=== PATIENT | female | born 1990 | race Native Hawaiian/Other Pacific Islander ===

== ENCOUNTER 2019-03-25 22:35 | Emergency (ER) | payer OTHER ==
[~2019-03-25] VITALS: Ht 160 cm; Wt 63.5 kg
[2019-03-25] MEDS ORDERED: PANTOPRAZOLE 40MG TA PO (22:51)
[2019-03-25] MEDS ORDERED: PRED10TA27 PO (22:51)
[2019-03-25] MEDS ORDERED: IBU800 MG PO (22:51)
[2019-03-25 23:38] LABS: PLATELET COUNT 236 K/uL (152-353)
[2019-03-25 23:55] LABS: POTASSIUM 4.2 mmol/L (3.6-5.2)
[2019-03-26 03:04] VITALS: BP 104/68; TEMP 97.9
== END 2019-03-26 03:04 | disposition home or self-care (01) ==
LOC: ED 22:35
PROVIDERS: Student in an Organized Health Care Education/Training Program
DX: R10.11 Right upper quadrant pain (principal); R11.2 Nausea with vomiting, unspecified
CPT/HCPCS: 36415; 80053; 81000; 83690; 83735; 85027; 96360; 96375; 96376; 99284; J1885; J2405; Q9963

== ENCOUNTER 2019-04-01 21:36 | Emergency (ER) | payer OTHER ==
[~2019-04-01] VITALS: Ht 160 cm; Wt 64.0 kg
[~2019-04-01 21:36] MED LIST: IBU800 MG PO; PANTOPRAZOLE 40MG TA PO; PRED10TA27 PO
[2019-04-01 23:49] LABS: PLATELET COUNT 236 K/uL (152-353)
[2019-04-01 23:50] LABS: POTASSIUM 4.1 mmol/L (3.6-5.2)
[2019-04-02 01:27] VITALS: BP 106/73; TEMP 98.3
== END 2019-04-02 01:27 | disposition home or self-care (01) ==
LOC: ED 21:36
PROVIDERS: Emergency Medicine
DX: K21.9 Gastro-esophageal reflux disease without esophagitis (principal)
CPT/HCPCS: 80053; 81000; 81025; 82150; 83690; 85027; 86318; 96360; 96375; 99284; J3490

== ENCOUNTER 2019-04-03 14:53 | Emergency (ER) | payer OTHER ==
[~2019-04-03] VITALS: Ht 160 cm; Wt 64.0 kg
[2019-04-03 15:30] LABS: POTASSIUM 3.6 mmol/L (3.6-5.2); SODIUM 141 mmol/L (136-145)
[2019-04-03 15:37] LABS: PLATELET COUNT 225 K/uL (152-353)
[2019-04-03 19:45] VITALS: BP 92/66; TEMP 98.8
== END 2019-04-03 19:45 | disposition home or self-care (01) ==
LOC: ED 14:53
PROVIDERS: Emergency Medicine
DX: R07.89 Other chest pain (principal); R00.0 Tachycardia, unspecified
CPT/HCPCS: 36415; 80053; 82550; 82553; 84484; 85027; 93005; 99284

== ENCOUNTER 2019-06-04 08:06 | Emergency (ER) | payer OTHER ==
[~2019-06-04] VITALS: Ht 160 cm; Wt 65.8 kg
[2019-06-04 08:12] VITALS: BP 123/77; TEMP 100
== END 2019-06-04 09:10 | disposition home or self-care (01) ==
LOC: ED 08:06
DX: J11.1 Influenza due to unidentified influenza virus with other respiratory manifestations (principal)
CPT/HCPCS: 87502; 87651; 99283

== ENCOUNTER 2019-06-07 00:06 | Emergency (ER) | payer OTHER ==
[~2019-06-07] VITALS: Ht 160 cm; Wt 65.8 kg
[2019-06-07 00:55] VITALS: BP 111/81; TEMP 98.9
== END 2019-06-07 00:55 | disposition home or self-care (01) ==
LOC: ED 00:06
DX: J11.1 Influenza due to unidentified influenza virus with other respiratory manifestations (principal); J98.01 Acute bronchospasm
CPT/HCPCS: 94664; 99283

== ENCOUNTER 2019-08-02 11:22 | Emergency (ER) | payer OTHER ==
[~2019-08-02] VITALS: Ht 160 cm; Wt 65.8 kg
[2019-08-02 11:31] VITALS: TEMP 98.8
[2019-08-02 12:15] LABS: PLATELET COUNT 211 K/uL (152-353)
[2019-08-02 12:24] LABS: POTASSIUM 3.7 mmol/L (3.6-5.2)
[2019-08-02 15:30] VITALS: BP 98/68
== END 2019-08-02 15:30 | disposition home or self-care (01) ==
LOC: ED 11:22
PROVIDERS: Family Medicine
DX: K21.9 Gastro-esophageal reflux disease without esophagitis (principal); K29.70 Gastritis, unspecified, without bleeding; R11.0 Nausea
CPT/HCPCS: 36415; 80053; 81000; 82271; 82272; 83986; 85027; 96374; 96375; 99284; J2405; J3490

== ENCOUNTER 2019-09-09 16:37 | Emergency (ER) | payer OTHER ==
[~2019-09-09] VITALS: Ht 160 cm; Wt 68.5 kg
[2019-09-09 16:44] VITALS: TEMP 98.4
[2019-09-09 17:42] LABS: PLATELET COUNT 210 K/uL (152-353)
[2019-09-09 17:48] LABS: POTASSIUM 3.6 mmol/L (3.6-5.2); SODIUM 140 mmol/L (136-145)
[2019-09-09 18:40] VITALS: BP 103/60
== END 2019-09-09 18:47 | disposition home or self-care (01) ==
LOC: ED 16:37
PROVIDERS: Emergency Medicine
DX: K21.9 Gastro-esophageal reflux disease without esophagitis (principal)
CPT/HCPCS: 80053; 81000; 81025; 82150; 83690; 84484; 85027; 93005; 96374; 99284; J3490

== ENCOUNTER 2019-09-11 13:24 | Emergency (ER) | payer OTHER ==
[~2019-09-11] VITALS: Ht 160 cm; Wt 68.5 kg
[2019-09-11 14:02] LABS: PLATELET COUNT 228 K/uL (152-353)
[2019-09-11 14:11] LABS: POTASSIUM 3.7 mmol/L (3.6-5.2)
[2019-09-11 14:53] VITALS: BP 115/72; TEMP 98.2
== END 2019-09-11 14:54 | disposition home or self-care (01) ==
LOC: ED 13:24
PROVIDERS: Emergency Medicine
DX: R42 Dizziness and giddiness (principal)
CPT/HCPCS: 36415; 80053; 80307; 81000; 85027; 93005; 99283

== ENCOUNTER 2019-09-13 09:29 | Emergency (ER) | payer OTHER ==
[~2019-09-13] VITALS: Ht 160 cm; Wt 68.5 kg
[2019-09-13 12:24] VITALS: BP 107/70; TEMP 97.7
[2019-09-13] MEDS ORDERED: CVS ALLERGY REL10 MG PO (12:32)
== END 2019-09-13 12:24 | disposition home or self-care (01) ==
LOC: ED 09:29
DX: J32.9 Chronic sinusitis, unspecified (principal); J30.9 Allergic rhinitis, unspecified; J06.9 Acute upper respiratory infection, unspecified; F17.210 Nicotine dependence, cigarettes, uncomplicated
CPT/HCPCS: 87502; 87651; 99283

== ENCOUNTER 2020-07-18 17:41 | Emergency (ER) | payer OTHER ==
[~2020-07-18] VITALS: Ht 160 cm; Wt 59.0 kg
[~2020-07-18 17:41] MED LIST changes: +CVS ALLERGY REL10 MG PO
[2020-07-18 19:19] VITALS: BP 101/68; TEMP 98
== END 2020-07-18 19:19 | disposition home or self-care (01) ==
LOC: ED 17:41
DX: N30.10 Interstitial cystitis (chronic) without hematuria (principal)
CPT/HCPCS: 81000; 99282

== ENCOUNTER 2021-07-05 11:44 | Emergency (ER) | payer OTHER ==
[~2021-07-05] VITALS: Ht 160 cm; Wt 64.0 kg
[2021-07-05 14:20] VITALS: BP 121/67; TEMP 98.3
== END 2021-07-05 14:20 | disposition home or self-care (01) ==
LOC: ED 11:44
DX: J01.80 Other acute sinusitis (principal); Z20.822 Contact with and (suspected) exposure to COVID-19; F17.210 Nicotine dependence, cigarettes, uncomplicated
CPT/HCPCS: 81025; 87502; 87635; 99283; J1885; U0003

== ENCOUNTER 2022-02-23 13:00 | Emergency (ER) | payer OTHER ==
[~2022-02-23] VITALS: Ht 160 cm; Wt 70.8 kg
[2022-02-23 13:06] VITALS: TEMP 98.7
[2022-02-23 13:48] LABS: PLATELET COUNT 258 K/uL (152-353)
[2022-02-23 13:52] LABS: POTASSIUM 3.6 mmol/L (3.6-5.2); SODIUM 138 mmol/L (136-145)
[2022-02-23 14:15] VITALS: BP 107/77
== END 2022-02-23 14:37 | disposition home or self-care (01) ==
LOC: ED 13:00
PROVIDERS: Emergency Medicine Emergency Medical Services
DX: R09.1 Pleurisy (principal); J20.9 Acute bronchitis, unspecified; R00.0 Tachycardia, unspecified; F17.210 Nicotine dependence, cigarettes, uncomplicated
CPT/HCPCS: 36415; 80048; 83735; 84484; 85027; 85379; 93005; 96374; 96375; 99284; J1885

== ENCOUNTER 2023-07-25 10:43 | Outpatient (CLI) | payer OTHER | END 2023-07-25 19:29 | disposition home or self-care (01) | LOC: RESP 10:43 | PROVIDERS: ATTEND Nurse Practitioner | DX: I10 Essential (primary) hypertension (principal); E78.2 Mixed hyperlipidemia; R07.89 Other chest pain ==